=== PATIENT | male | born 1990 | race Caucasian/White ===

== ENCOUNTER 2016-07-06 15:04 | Emergency (ER) | payer OTHER ==
[~2016-07-06] VITALS: Ht 172.7 cm; Wt 125.0 kg
[2016-07-06 15:06] VITALS: Ht 172.7 cm; Wt 125.0 kg
[2016-07-06] MEDS ORDERED: SOD CHLORIDE 0.9% 1,000 ML IV STA (15:08)
[2016-07-06] MEDS ORDERED: ASPIRIN 81 MG TAB ONE (15:12)
[2016-07-06 15:18] LABS: ADD SCAN DIFF NO
[2016-07-06 15:20] LABS: BASOPHIL # 0.1 10^3/ul (0.0-0.1); BASOPHILS % 0.6 % (0.0-2.0); EOSINOPHILS # 0.2 10^3/ul (0.0-0.5); EOSINOPHILS % 2.7 % (0.0-7.0); HEMATOCRIT 43.5 % (42.0-52.0); HEMOGLOBIN 14.7 g/dl (14.0-18.0); LYMPHOCYTES # 2.5 10^3/ul (0.8-2.9); LYMPHOCYTES % 29.8 % (15.0-51.0); MEAN CORPUSCULAR HGB CONC 33.8 g/dl (32.0-37.0); MEAN PLATELET VOLUME 10.8 fl (7.4-10.4); MONOCYTE # 0.8 10^3/ul (0.3-0.9); MONOCYTES % 9.7 % (0.0-11.0); NEUTROPHIL # 4.7 10^3/ul (1.6-7.5); NEUTROPHILS % 56.8 % (39.0-77.0); PLATELET COUNT 262 10^3/UL (140-415); RED BLOOD COUNT 5.44 10^6/ul (4.70-6.10); RED CELL DISTRIBUTION WIDTH 13.8 % (11.5-14.5); WHITE BLOOD COUNT 8.3 10^3/ul (4.8-10.8)
[2016-07-06 15:30] LABS: INR 0.91; PROTIME 12.3 Sec (12.2-14.2)
[2016-07-06] MEDS ORDERED: ASPIRIN 81 MG TAB PO ONE (15:30)
[2016-07-06 15:38] LABS: ALBUMIN 4.5 g/dl (3.3-4.9); CHLORIDE 103 mmol/L (97-110)
[2016-07-06 15:39] LABS: SODIUM 137 mmol/L (135-144)
--- NOTE | 2016-07-06 15:40 | RADRPT ---
PROCEDURE: XR Chest. CLINICAL INDICATION: chest pain TECHNIQUE: Single frontal view of the chest was obtained COMPARISON: None FINDINGS: The heart and mediastinum are within normal limits. The lungs are clear. There is no pleural effusion or pneumothorax. RPTAT: AA IMPRESSION: No acute disease. .Candido Ingram MD, Date Time Electronically viewed and signed by .Candido Ingram MD, on 07/06/2016 15:40 .S/
[2016-07-06 15:41] LABS: ALBUMIN/GLOBULIN RATIO 1.18; ALKALINE PHOSPHATASE 159 IU/L (42-121); ANION GAP 12 (8-16); ASPARTATE AMINO TRANSFERASE 49 IU/L (15-46); BILIRUBIN,INDIRECT 0.3 mg/dl (0-1.1); BILIRUBIN,TOTAL 0.3 mg/dl (0.2-1.3); CARBON DIOXIDE 26 mmol/L (21-31); TOTAL PROTEIN 8.3 g/dl (6.1-8.1)
[2016-07-06 15:42] LABS: ALANINE AMINOTRANSFERASE 76 IU/L (13-69); BLOOD UREA NITROGEN 10 mg/dl (7-20); CALCIUM 9.3 mg/dl (8.4-10.2); GLUCOSE 118 mg/dl (70-220)
[2016-07-06 15:58] LABS: TROPONIN-I < 0.012 ng/ml (0.00-0.12)
--- NOTE | 2016-07-06 16:32 | ERD ---
ER Documentation Chief Complaint Date/Time DATE: 07/06/16 TIME: 16:29 Chief Complaint BIB RA FOR EVAL OF STEMI IN FIELD DIZZINESS POUNDING FEELING IN CHEST AM HPI 25-year-old man transferred from [facility] for abnormal EKG suggesting STEMI. Patient states he felt about 20-30 minutes of dizziness this afternoon and went to the clinic for evaluation, EKG there was abnormal so he was transferred here for possible acute coronary syndrome. Patient denies any chest pain or shortness of breath, no loss of consciousness, no cough, no calf or leg swelling, no headache or blurry vision. Patient denies any weakness in his arms or legs and no slurred speech. Patient denies any drug abuse or concerning personal family cardiac history. ROS All systems reviewed and are negative except as per history of present illness. Medications Home Meds No Active Prescriptions or Reported Meds Allergies Allergies: Coded Allergies: Penicillins (Unverified Allergy, Unknown, 07/06/16) PMhx/Soc Medical and Surgical Hx: pt denies Surgical Hx Hx Cardiac Disorders: Yes (HTN NO MEDICATIONS, HYPERLIPIDEMIA NO MEDICATIONS ) Hx Psychiatric Problems: No Hx Miscellaneous Medical Probl: No Hx Alcohol Use: Yes (2beers and 3vodka last drank lasting ) Hx Substance Use: No Hx Tobacco Use: No Smoking Status: Never smoker FmHx Family History: No diabetes Physical Exam Vitals Vital Signs Date Time Temp Pulse Resp B/P Pulse Ox O2 Delivery O2 Flow Rate FiO2 07/06/16 16:58 68 18 145/96 100 Room Air 07/06/16 15:06 98.1 74 18 159/108 100 Physical Exam GENERAL: Well-developed, well-nourished, well-hydrated, in no apparent distress , looks nontoxic in appearance HEENT: Moist mucous membranes, pink conjunctiva, no cervical spine tenderness or step-off deformities, no goiter, no jaundice or icterus, extraocular movements intact without pain. No submandibular induration, and no pharyngeal erythema NEURO: Alert and oriented 3, cranial nerves II through XII intact bilaterally, pupils equal round reactive to light, no focal deficits or facial asymmetry, sensation intact distally Strength 5/5 in upper and lower extremities bilaterally CARDIAC: Regular rate and rhythm, no murmurs rubs or gallops LUNGS: Clear bilaterally no wheezing crackles or stridor ABDOMEN: Soft nontender, no guarding, no rigidity, no rebound, no psoas sign no obturator sign. Normoactive bowel sounds SKIN: Warm and dry to touch, no abrasions, contusions, or hematomas, no lacerations, no ecchymosis, no target lesions, and without ulcers EXTREMITIES: No clubbing cyanosis or edema, calves are bilaterally symmetrical, no Homans sign, no popliteal cord sign. Distal pulses equal and bilateral PSYCH: Normal affect without agitation or irritability Result Diagram: 07/06/16 1510 07/06/16 1510 Results 24 hrs Laboratory Tests Test 07/06/16 15:10 White Blood Count 8.310^3/ul Red Blood Count 5.4410^6/ul Hemoglobin 14.7g/dl Hematocrit 43.5% Mean Corpuscular Volume 80.0fl Mean Corpuscular Hemoglobin 27.0pg Mean Corpuscular Hemoglobin Concent 33.8g/dl Red Cell Distribution Width 13.8% Platelet Count 86396^3/UL Mean Platelet Volume 10.8fl Neutrophils % 56.8% Lymphocytes % 29.8% Monocytes % 9.7% Eosinophils % 2.7% Basophils % 0.6% Nucleated Red Blood Cells % 0.0/100WBC Neutrophils # 4.710^3/ul Lymphocytes # 2.510^3/ul Monocytes # 0.810^3/ul Eosinophils # 0.210^3/ul Basophils # 0.110^3/ul Nucleated Red Blood Cells # 0.010^3/ul Prothrombin Time 12.3Sec Prothrombin Time Ratio 1.0 INR International Normalized Ratio 0.91 Sodium Level 137mmol/L Potassium Level 4.0mmol/L Chloride Level 103mmol/L Carbon Dioxide Level 26mmol/L Anion Gap 12 Blood Urea Nitrogen 10mg/dl Creatinine 0.90mg/dl Glucose Level 118mg/dl Calcium Level 9.3mg/dl Total Bilirubin 0.3mg/dl Direct Bilirubin 0.00mg/dl Indirect Bilirubin 0.3mg/dl Aspartate Amino Transf (AST/SGOT) 49IU/L Alanine Aminotransferase (ALT/SGPT) 76IU/L Alkaline Phosphatase 159IU/L Troponin I < 0.012ng/ml Total Protein 8.3g/dl Albumin 4.5g/dl Globulin 3.80g/dl Albumin/Globulin Ratio 1.18 Lipase 66U/L Current Medications Medications (Trade) Dose Ordered Sig/Antoinette Route PRN Reason Start Time Stop Time Status Last Admin Dose Admin Sodium Chloride (NS) 1,000 ml @ 1,000 mls/hr Q1H STAT IV 07/06/16 15:08 07/06/16 16:07 DC 07/06/16 15:14 Aspirin (Aspirin) 162 mg ONCE ONCE PO 07/06/16 15:30 07/06/16 15:31 DC 07/06/16 15:13 Procedures/MDM IV line was established patient was placed on cardiac sonographer rhythm strip revealed a sinus rhythm at about 90 bpm with upright P and T waves. Patient was afebrile. I administered 1 L normal saline intravenously and aspirin 162 mg p.o. for cardioprotective measures. EKG was performed, read by me there is a normal sinus rhythm at 90 bpm, normal axis, narrow QRS complex with early ST repolarization's in lead V2 and V3 with minor 0.5 mm T-wave inversions in leads III, no concerning ST elevations or depressions noted. Code STEMI was immediately called and I spoke to the vending technician on-call, we discussed the patient's case and he did review the EKGs. The patient is without complaints of chest pain and EKG in the ER reveals early repolarization of ST segments and no concerning ST elevations or depressions. Patient is not a candidate for emergent PCI at this time. One AP view of the chest performed, read by me reveals no acute infiltrates, normal mediastinum, sharp costophrenic and cardiac borders, no air under the diaphragm. Otherwise unremarkable chest x-ray. I also spoke to [facility] physician regarding the patient's presentation, symptomatology, and EKG findings. He also recommended outpatient management and assured me that he will forward all of the notes to the patient's [place] [facility] and stated he will order an urgent cardiology consultation for early next week. [place] authorization number is [id number] CBC and electrolytes were normal, liver function tests revealed mild transaminitis otherwise unremarkable, troponin was negative. Cardiac critical Care: Time: 35 minutes, this was time separate from other procedures. Treatments/Evaluations: Close monitoring and treatment of unstable vital signs, cardiorespiratory, and neurologic status, while maintaining tight balance of fluid, respiratory, and cardiac interventions. Differential diagnoses considered, included but not limited to acute coronary syndrome, pulmonary embolism, aortic dissection, abdominal aortic aneurysm, sepsis, stroke, meningitis, encephalitis, pneumonia, appendicitis, cholecystitis , bowel obstruction, pyelonephritis, nephrolithiasis, cystitis, as well as metabolic, hematologic, and electrolyte abnormalities. As well as abscess, cellulitis, fractures, and dislocations. Patient feels much better at this time, and vital signs are normal, symptoms have improved. I did give strict instructions to return to the ED if symptoms continue or worsen, patient will otherwise follow-up with primary care physician. Patient understood instructions and agreed to plan. Departure Diagnosis: Primary Impression: Dizziness Additional Impression: Abnormal EKG Condition: Good Patient Instructions: Dizziness, Unk Cause JESÚS QUINTANILLA MD Jul 06, 2016 16:32
[2016-07-06 16:58] VITALS: BP 145/96; PULSE 68; RESP 18
== END 2016-07-06 16:58 | disposition home or self-care (01) ==
LOC: E/R 15:04
DX: R42 Dizziness and giddiness (principal); R94.31 Abnormal electrocardiogram [ECG] [EKG]; I10 Essential (primary) hypertension; R07.9 Chest pain, unspecified
CPT/HCPCS: 36415; 71010; 80053; 83690; 84484; 85025; 85610; 99285; J7030; 93005